=== PATIENT | female | born 1960 | race Caucasian/White ===

== ENCOUNTER → 2024-03-26 13:21 | Outpatient (REF) | payer MEDICARE, OTHER, SELFPAY | LOC: WDC 13:21 | PROVIDERS: ATTENDING PHYSICIAN Obstetrics & Gynecology; FAMILY PHYSICIAN Family Medicine | DX: Z12.31 Encounter for screening mammogram for malignant neoplasm of breast (principal) | CPT/HCPCS: 77063; 77067 ==

== ENCOUNTER → 2025-04-01 14:51 | Outpatient (REF) | payer MEDICARE, OTHER, SELFPAY | LOC: WDC 14:51 | PROVIDERS: ATTENDING PHYSICIAN Student in an Organized Health Care Education/Training Program; FAMILY PHYSICIAN Family Medicine | DX: Z78.0 Asymptomatic menopausal state (principal); Z12.31 Encounter for screening mammogram for malignant neoplasm of breast | CPT/HCPCS: 77063; 77067; 77080 ==

== ENCOUNTER 2025-05-09 15:47 | Emergency (ER) | payer MEDICARE, OTHER, SELFPAY ==
[2025-05-09 15:50] VITALS: BP 146/89
[2025-05-09 16:19] VITALS: BMI 24.9
--- NOTE | 2025-05-09 16:39 | ED.SKININJ ---
HPI-Injury
General
Chief Complaint: Eye Problems
Source: patient
Exam Limitations: none
Nursing documentation reviewed up to this point in time: agreed with
History of Present Illness-Injury
Initial Injury comments:
64-year-old female with no significant past medical history is here for a left eye injury. She states she was gardening, bent over and a stick scraped her in the left eye. She has had pain in the eye since. She denies change in vision.
Past History
Past History
ED Past Medical History: None
ED Past Surgical History: Other (Hernia repair)
Social History
Tobacco: Non-smoker
Personal:
Living: with family
Employment: Employed
Family History
Family History: Other (Noncontributory)
Review of Systems
Review of Systems
Allergies reviewed?: Yes
All Other Systems: ROS reviewed and negative except as documented in HPI and ROS
Phy Exam
Physical Exam
Physical Exam:
PHYSICAL EXAMINATION:
General: no apparent distress, not acutely ill
Neuro: alert and oriented.
Psychiatric: well kept. interactive and cooperative
Musculoskeletal: Moves with ease
Skin: Warm, pink.
Eye Exam
Eye Exam: PERRL, EOMI, cornea clear (With fluorescein stain, there is a thin vertical abrasion between 12 and 6:00 and there is a small punctate abrasion at 2:00), conjunctiva normal (Left conjunctiva mildly injected), globe normal and visual acuity
normal
Course
Orders/Labs/Results
Orders:
Orders
05/09/25 16:37
Gentamicin [Genoptic 0.3% Eye Drops] 2 drop LEFT EYE NOW STA
05/09/25 16:40
Visual Acuity- Treatment ONCE
05/09/25 16:58
Tetracaine HCl [Tetracaine 0.5% Ophthalmic Solution] 1 drop .ROUTE .[facility]
Vital Signs
Initial and Last Documented VS:
Initial Vital Signs
Temp Pulse Resp BP Pulse Ox
98.0 F 60 20 146/89 98
05/09/25 15:50 05/09/25 15:50 05/09/25 15:50 05/09/25 15:50 05/09/25 15:50
Last Documented Vital Signs
Temp Pulse Resp BP Pulse Ox
98.0 F 60 20 146/89 98
05/09/25 15:50 05/09/25 15:50 05/09/25 15:50 05/09/25 15:50 05/09/25 16:40
MDM/Problems Addressed
Differential Diagnosis Includes:
Corneal abrasion puncture globe,
MDM/Problems Addressed:
64-year-old female with no significant past medical history is here for a left eye injury. She states she was gardening, bent over and a stick scraped her in the left eye. She has had pain in the eye since. She denies change in vision.
Eye is mildly tearful, globe is normal to palpation, no concern for puncture globe
*Pulse Oximetry
SaO2: 98
Oxygen Mode of Delivery: Room air
Patient hypoxic: not evaluated
*Critical Care Note
Total Time (30-74mins, 75-104mins- exclusive of procedures): Not Applicable
ED Attending Note
-
Portions of this chart may have been created with voice recognition software.� Occasional wrong word or��sound alike� substitutions may have occurred due to the inherent limitations of voice recognition software.
Discharge Plan
Departure
Patient Disposition: Home (Routine Discharge)
Date of Disposition: 05/09/25
Time of Disposition: 16:42
Patient with high blood pressure during this ER visit?: No
Condition: Good
Discharge Problem:
Corneal abrasion, left
Instructions: Corneal Abrasion (DC), How to Use Eye Drops
Prescriptions:
No Action
No Meds [No Current Medications]
0
Referrals:
Your eye doctor [Other] - Follow up in 2-3 days
Activity Restrictions/Additional Instructions:
As we discussed, use the gentamicin eyedrops as follows: 1 to 2 drops in the affected eye 3 times a day for the next 5 days
You may take Tylenol or ibuprofen as needed for discomfort in the eye
Return here over the weekend if pain gets worse, you have a loss of vision or anything that concerns you.
Interventions
Interventions:
*Risk Screen - Suicide Last Done: 05/09/25 16:20
*General Assessment Last Done: 05/09/25 15:50
*Neglect/Abuse Screening Last Done: 05/09/25 16:20
*ED- Fall Risk Assessment Last Done: 05/09/25 16:20
*ED COVID-19 Vaccine History Last Done: 05/09/25 16:20
*ED Influenza Vaccine History Last Done: 05/09/25 16:20
*Nursing Disposition Last Done: 05/09/25 16:55
Discharge Date and Time
Discharge Date/Time: 05/09/25 16:57
Print Language: ALBANIAN
[2025-05-09] MEDS: GENOPTIC 0.3% EYE DROPS 2 DROP LEFT EYE (16:47)
== END 2025-05-09 16:57 | disposition home or self-care (01) ==
LOC: EMR 15:47
PROVIDERS: EMERGENCY PHYSICIAN Registered Nurse; FAMILY PHYSICIAN Family Medicine
DX: S05.02XA Injury of conjunctiva and corneal abrasion without foreign body, left eye, initial encounter (principal); W22.8XXA Striking against or struck by other objects, initial encounter; Y93.H2 Activity, gardening and landscaping
CPT/HCPCS: 99283